=== PATIENT | male | born 1990 | race Caucasian/White ===

== ENCOUNTER 2019-11-23 12:08 | Emergency (ER) | payer MEDICAID, OTHER, SELFPAY ==
[~2019-11-23] VITALS: Ht 180.3 cm; Wt 85.0 kg
[2019-11-23 12:11] VITALS: BP 145/87
== END 2019-11-23 12:22 | disposition home or self-care (01) ==
LOC: ER 12:09
DX: Z03.818 Encounter for observation for suspected exposure to other biological agents ruled out (principal); F15.90 Other stimulant use, unspecified, uncomplicated; F12.90 Cannabis use, unspecified, uncomplicated; F17.200 Nicotine dependence, unspecified, uncomplicated; Z88.5 Allergy status to narcotic agent
CPT/HCPCS: 99281

== ENCOUNTER 2020-12-01 07:59 | Emergency (ER) | payer MEDICAID, SELFPAY ==
[~2020-12-01] VITALS: Ht 180.3 cm; Wt 77.3 kg
[2020-12-01 08:04] VITALS: BP 142/93
[2020-12-01] MEDS ORDERED: PENI500T2 PO (09:34)
[2020-12-01] MEDS ORDERED: IBUP-1984 PO (09:34)
== END 2020-12-01 10:09 | disposition home or self-care (01) ==
LOC: ER 07:59
DX: K08.89 Other specified disorders of teeth and supporting structures (principal); Z88.5 Allergy status to narcotic agent; Z79.2 Long term (current) use of antibiotics; Z79.899 Other long term (current) drug therapy
CPT/HCPCS: 99283

== ENCOUNTER 2021-08-19 10:53 | Emergency (ER) | payer MEDICAID ==
[~2021-08-19] VITALS: Ht 180.3 cm; Wt 78.2 kg
[2021-08-19 11:12] VITALS: BP 134/81
[2021-08-19] MEDS ORDERED: cyclobenzaprine 10mg tablet PO ONE (11:30)
[2021-08-19] MEDS ORDERED: ketorolac trometh. 30mg/ml inj. IM ONE (11:30)
== END 2021-08-19 11:38 | disposition home or self-care (01) ==
LOC: ER 10:54
DX: R07.89 Other chest pain (principal)
CPT/HCPCS: 93005; 99283

== ENCOUNTER 2021-11-07 08:20 | Emergency (ER) | payer MEDICAID ==
[~2021-11-07] VITALS: Ht 170.2 cm; Wt 71.4 kg
[2021-11-07 08:36] VITALS: BP 142/91
== END 2021-11-07 09:16 | disposition home or self-care (01) ==
LOC: ER 08:21
DX: S60.361A Insect bite (nonvenomous) of right thumb, initial encounter (principal); R20.2 Paresthesia of skin; W57.XXXA Bitten or stung by nonvenomous insect and other nonvenomous arthropods, initial encounter; Y93.89 Activity, other specified; Y92.89 Other specified places as the place of occurrence of the external cause; Y99.8 Other external cause status
CPT/HCPCS: 99281

== ENCOUNTER 2022-05-18 19:18 | Emergency (ER) | payer MEDICAID ==
[~2022-05-18] VITALS: Ht 180.3 cm; Wt 97.9 kg
[2022-05-18 19:55] VITALS: BP 148/97
[2022-05-19] MEDS ORDERED: SULF1TAB49 PO (10:54)
== END 2022-05-18 21:11 | disposition home or self-care (01) ==
LOC: ER 19:18
DX: M79.671 Pain in right foot (principal); Z53.21 Procedure and treatment not carried out due to patient leaving prior to being seen by health care provider

== ENCOUNTER 2022-05-19 10:33 | Emergency (ER) | payer MEDICAID ==
[~2022-05-19] VITALS: Ht 180.3 cm; Wt 68.0 kg
[2022-05-19 10:46] VITALS: BP 134/78
[2022-05-19] MEDS ORDERED: SULF1TAB49 PO (10:54)
[2022-05-19] MEDS ORDERED: sulfamethoxazole/trimethoprim DS (800/160mg) tablet PO ONE (10:55)
[2022-05-19] MEDS ORDERED: TETanus/Pertussis (Acell)/Diphther VAC/PF (Tdap-Adult) 0.5ml syringe IMVAC ONE (10:55)
[2022-05-19] MEDS ORDERED: bacitracin 15gm ointment TP ONE (10:55)
== END 2022-05-19 11:25 | disposition home or self-care (01) ==
LOC: ER 10:33
DX: L53.8 Other specified erythematous conditions (principal); M79.89 Other specified soft tissue disorders; Z79.899 Other long term (current) drug therapy
CPT/HCPCS: 90471; 90715; 99283; A6449

== ENCOUNTER 2022-06-06 20:32 | Emergency (ER) | payer MEDICAID | END 2022-06-06 22:57 | disposition left against medical advice (07) | LOC: ER 20:33 | DX: L08.9 Local infection of the skin and subcutaneous tissue, unspecified (principal); Z53.21 Procedure and treatment not carried out due to patient leaving prior to being seen by health care provider ==

== ENCOUNTER 2022-06-09 09:19 | Emergency (ER) | payer MEDICAID ==
[~2022-06-09] VITALS: Ht 177.8 cm; Wt 72.7 kg
[2022-06-09 09:37] VITALS: BP 144/95
[2022-06-09] MEDS ORDERED: ibuprofen tablet 400 MG TABLET PO ONE (10:15)
[2022-06-09] MEDS ORDERED: sulfamethoxazole/trimethoprim DS (800/160mg) tablet PO ONE (10:15)
[2022-06-09] MEDS ORDERED: ACET-1008 PO (10:16)
[2022-06-09] MEDS ORDERED: SULF1TAB49 PO (10:16)
== END 2022-06-09 10:34 | disposition home or self-care (01) ==
LOC: ER 09:19
DX: L02.415 Cutaneous abscess of right lower limb (principal); Z79.899 Other long term (current) drug therapy
CPT/HCPCS: 99283

== ENCOUNTER 2022-06-13 22:07 | Emergency (ER) | payer MEDICAID ==
[~2022-06-13] VITALS: Ht 172.7 cm; Wt 72.0 kg
[~2022-06-13 22:07] MED LIST: ACET-1008 PO; SULF1TAB49 PO
[2022-06-13 22:11] VITALS: BP 153/98
[2022-06-13] MEDS ORDERED: TETanus/Pertussis (Acell)/Diphther VAC/PF (Tdap-Adult) 0.5ml syringe IMVAC ONE (22:45)
[2022-06-13] MEDS ORDERED: sulfamethoxazole/trimethoprim DS (800/160mg) tablet PO ONE (22:45)
[2022-06-13] MEDS ORDERED: LIDOcaine 1% w/EPI 1:100,000 30ml vial (MDV) IJ ONE (22:50)
[2022-06-13] MEDS ORDERED: SULF1TAB49 PO (23:14)
[2022-06-13] MEDS ORDERED: bacitracin 15gm ointment TP ONE (23:30)
== END 2022-06-13 23:41 | disposition home or self-care (01) ==
LOC: ER 22:07
DX: L02.415 Cutaneous abscess of right lower limb (principal)
CPT/HCPCS: 10060; 90471; 90715; 99284; J3490

== ENCOUNTER 2022-10-03 02:51 | Emergency (ER) | payer MEDICAID ==
[~2022-10-03] VITALS: Ht 180.3 cm; Wt 80.0 kg
[2022-10-03 02:55] VITALS: BP 159/108
== END 2022-10-03 04:32 | disposition left against medical advice (07) ==
LOC: ER 02:53
DX: L02.211 Cutaneous abscess of abdominal wall (principal); Z53.21 Procedure and treatment not carried out due to patient leaving prior to being seen by health care provider
CPT/HCPCS: 99281

== ENCOUNTER 2023-04-13 13:22 | Emergency (ER) | payer MEDICAID | END 2023-04-13 15:38 | disposition left against medical advice (07) | LOC: ER 13:22 | DX: K08.89 Other specified disorders of teeth and supporting structures (principal); Z53.21 Procedure and treatment not carried out due to patient leaving prior to being seen by health care provider ==

== ENCOUNTER 2023-05-17 01:42 | Emergency (ER) | payer MEDICAID ==
[~2023-05-17] VITALS: Ht 180.3 cm; Wt 66.2 kg
[2023-05-17 01:56] VITALS: BP 130/93; PULSE 95; RESP 18; TEMP 98.4; O2SAT 99
[2023-05-17] MEDS ORDERED: levetiracetam inj 1,000 MG in normal saline 100ml IV soln 90 ML IV ONE (02:00)
[2023-05-17] MEDS ORDERED: levetiracetam inj 1,000 MG in normal saline 100ml IV soln 100 ML IV ONE (02:10)
[2023-05-17] MEDS ORDERED: SULF1TAB49 PO (02:10)
[2023-05-17] MEDS ORDERED: TETanus/Pertussis (Acell)/Diphther VAC/PF (Tdap-Adult) 0.5ml syringe IMVAC ONE (02:15)
[2023-05-17] MEDS ORDERED: sulfamethoxazole/trimethoprim DS (800/160mg) tablet PO ONE (02:15)
[2023-05-17] MEDS ORDERED: bacitracin 15gm ointment TP ONE (02:15)
[2023-05-17] MEDS ORDERED: ondansetron 4mg rapidly disintigrating tab PO ONE (02:15)
== END 2023-05-17 02:32 | disposition home or self-care (01) ==
LOC: ER 01:42
DX: L03.113 Cellulitis of right upper limb (principal); Z88.5 Allergy status to narcotic agent
CPT/HCPCS: 90471; 90715; 99284

== ENCOUNTER 2024-01-02 11:46 | Emergency (ER) | payer MEDICAID ==
[~2024-01-02] VITALS: Ht 182.9 cm; Wt 77.3 kg
[2024-01-02 12:00] VITALS: BP 132/80; PULSE 95; O2SAT 95
[2024-01-02 13:16] VITALS: RESP 17; TEMP 98.6
== END 2024-01-02 13:21 | disposition home or self-care (01) ==
LOC: ER 11:46
DX: F15.10 Other stimulant abuse, uncomplicated (principal)
CPT/HCPCS: 99281

== ENCOUNTER 2025-02-17 09:30 | Emergency (ER) | payer MEDICAID ==
[~2025-02-17] VITALS: Ht 180.3 cm; Wt 68.2 kg
[2025-02-17 09:35] VITALS: BP 136/84; PULSE 97; RESP 18; O2SAT 99
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
[2025-02-17] MEDS: ibuprofen tablet 400 MG TABLET PO ONE (09:54)
[2025-02-17 09:56] VITALS: TEMP 97.9
== END 2025-02-17 09:59 | disposition home or self-care (01) ==
LOC: ER 09:31
DX: Z00.8 Encounter for other general examination (principal); F15.90 Other stimulant use, unspecified, uncomplicated
CPT/HCPCS: 99282